=== PATIENT | female | born 1995 | race Caucasian/White ===

== ENCOUNTER 2017-02-23 21:44 | Emergency (ER) | payer MEDICAID ==
[~2017-02-23] VITALS: Ht 170.2 cm; Wt 63.8 kg
[~2017-02-23 21:44] MED LIST: CEPH250T PO; NO HOME MEDS; ONDA4TAB6 PO; POTA20TA19 PO
[2017-02-23] MEDS ORDERED: ALBU8.5H8 IH (22:24)
[2017-02-23] MEDS ORDERED: BENZ-38 PO (22:24)
[2017-02-23 22:50] VITALS: BP 134/87
[2017-02-23 23:00] LABS: CLARITY,URINE SLIGHTLY CLOUDY (Clear); COLOR,URINE YELLOW (Yellow); GLUCOSE, URINE NEGATIVE (Neg); KETONES,URINE NEGATIVE (Neg); LEUKOCYTE ESTERASE ,URINE TRACE (Neg); NITRITES, URINE NEGATIVE (Neg); OCCULT BLOOD,URINE NEGATIVE (Neg); PROTEIN,URINE NEGATIVE (Neg); UA COLLECTION TYPE CLN CATCH MIDSTREAM; UROBILINOGEN,URINE 0.2 E.U/dL (0.2-1.0)
[2017-02-23 23:12] LABS: BACTERIA,URINE 2+ /HPF (Neg); MUCUS STRANDS NONE SEEN /LPF (Neg); RBC,URINE NONE SEEN /HPF (0-2); SQUAMOUS EPITHELIAL CELL,UR MANY /LPF (FEW); WBC,URINE 0-4 /HPF (0-4)
== END 2017-02-23 22:51 | disposition home or self-care (01) ==
LOC: ER 21:45
DX: J40 Bronchitis, not specified as acute or chronic (principal); F17.210 Nicotine dependence, cigarettes, uncomplicated; F12.10 Cannabis abuse, uncomplicated; F15.10 Other stimulant abuse, uncomplicated; Z79.899 Other long term (current) drug therapy
CPT/HCPCS: 71046; 81001; 99285

== ENCOUNTER 2018-10-12 16:41 | Emergency (ER) | payer MEDICAID ==
[~2018-10-12] VITALS: Ht 170.2 cm; Wt 61.4 kg
[~2018-10-12 16:41] MED LIST changes: +ALBU8.5H8 IH; -CEPH250T PO
[2018-10-12 17:10] VITALS: BP 127/89
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
--- NOTE | 2018-10-12 18:49 | NUR ---
SO OFFICER HAS APPROVED A SART EXAM FOR THIS PT. HE IS ALSO ASKING FOR AND RECIEVED A MEDICAL RECORDS RELEAS.
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
== END 2018-10-12 19:00 | disposition left against medical advice (07) ==
LOC: EEVIPCON 16:41 → ER 16:42
DX: R20.0 Anesthesia of skin (principal); Z53.21 Procedure and treatment not carried out due to patient leaving prior to being seen by health care provider; Y04.8XXA Assault by other bodily force, initial encounter; Y93.89 Activity, other specified; Y92.89 Other specified places as the place of occurrence of the external cause; Y99.8 Other external cause status

== ENCOUNTER 2019-03-04 03:20 | Emergency (ER) | payer MEDICAID ==
[~2019-03-04] VITALS: Ht 170.2 cm; Wt 63.6 kg
[2019-03-04 04:01] LABS: CLARITY,URINE CLOUDY (Clear); COLOR,URINE YELLOW (Yellow); GLUCOSE, URINE NEGATIVE (Neg); KETONES,URINE NEGATIVE (Neg); LEUKOCYTE ESTERASE ,URINE LARGE (Neg); NITRITES, URINE POSITIVE (Neg); OCCULT BLOOD,URINE TRACE-INTACT (Neg); PROTEIN,URINE TRACE mg/dl (Neg); UROBILINOGEN,URINE 0.2 E.U/dL (0.2-1.0)
[2019-03-04 04:03] LABS: UA COLLECTION TYPE CLN CATCH MIDSTREAM
[2019-03-04 04:04] LABS: URINE HCG POSITIVE (NEG)
[2019-03-04 04:09] LABS: BACTERIA,URINE 4+ /HPF (Neg); RBC,URINE 0-2 /HPF (0-2); SQUAMOUS EPITHELIAL CELL,UR MODERATE /LPF (FEW); WBC,URINE TNTC /HPF (0-4)
[2019-03-04 04:10] LABS: MUCUS STRANDS FEW /LPF (Neg); WBC CLUMPS,URINE FEW /HPF (NEGATIVE)
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
[2019-03-04] MEDS ORDERED: NITR100C6 PO (04:24)
[2019-03-04] MEDS ORDERED: PREN1TAB79 PO (04:24)
[2019-03-04] MEDS ORDERED: nitrofuran/nitrofuran macrocrysal 100 MG capsule PO ONE (04:25)
[2019-03-04 04:26] VITALS: BP 124/85
--- NOTE | 2019-03-04 04:37 | NUR ---
PT SEEN FOR AND UTI ABX PRESCRIBED AND REVIEWED, NOTIFIED PT THAT FIRST OF ABX WILL BE GIVEN PRIOR TO HER DEPARTURE. PT DECLINED WANTING TO TAKE MEDICATION UNTIL SHE SEEN HER PRIMARY MD. EDUCATED PT THAT THE ABX WAS SAFE FOR , BUT PT STILL HESITANT TO TAKE . STATES SHE WILL FILL THE PRESCRIPTION AND TAKE MEDICATION ONCE SHE SEEKS A OB /TOE STAPLER OR GOES TO HER PRIMARY MD. INSTRUCTED PT THE IMPORTANCE OF TREATING UTI NO QUESTIONS ASKED PT AMBULATED OFF UNIT WITH [facility] AWAITING [facility]
== END 2019-03-04 04:37 | disposition home or self-care (01) ==
LOC: ER 03:21
DX: O23.40 Unspecified infection of urinary tract in pregnancy, unspecified trimester (principal); F12.90 Cannabis use, unspecified, uncomplicated; F15.90 Other stimulant use, unspecified, uncomplicated; Z79.899 Other long term (current) drug therapy; Z3A.00 Weeks of gestation of pregnancy not specified
CPT/HCPCS: 36415; 81001; 81025; 87077; 87088; 87186; 87491; 99283

== ENCOUNTER 2019-04-25 18:00 | Emergency (ER) | payer MEDICAID ==
[~2019-04-25] VITALS: Ht 170.2 cm; Wt 67.0 kg
[~2019-04-25 18:00] MED LIST changes: +NITR100C6 PO; +PREN1TAB79 PO
[2019-04-25 19:09] VITALS: BP 138/86
== END 2019-04-25 19:45 | disposition home or self-care (01) ==
LOC: ER 18:03
DX: O99.322 Drug use complicating pregnancy, second trimester (principal); F15.20 Other stimulant dependence, uncomplicated; F12.90 Cannabis use, unspecified, uncomplicated; F17.200 Nicotine dependence, unspecified, uncomplicated; Z79.899 Other long term (current) drug therapy; Z3A.14 14 weeks gestation of pregnancy
CPT/HCPCS: 99281

== ENCOUNTER 2019-12-07 14:25 | Emergency (ER) | payer MEDICAID ==
[~2019-12-07] VITALS: Ht 170.2 cm; Wt 54.5 kg
[2019-12-07] MEDS ORDERED: TETanus/Pertussis (Acell)/Diphther VAC/PF (Tdap-Adult) 0.5ml syringe IMVAC ONE (14:55)
--- NOTE | 2019-12-07 14:56 | NUR ---
Call placed to [facility] who will call me back with the name of the hotel that they are booking for her.
--- NOTE | 2019-12-07 15:20 | NUR ---
Contacted by [facility]. Pt has room reserved at [facility] for tonight. We will procur a cab to transport patient to [facility] when medically cleared for discharge.
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
[2019-12-07 16:36] VITALS: BP 113/81
== END 2019-12-07 16:37 | disposition home or self-care (01) ==
LOC: ER 14:26 → EEVIPCON 14:26 → ER 16:37
DX: M54.2 Cervicalgia (principal); J02.9 Acute pharyngitis, unspecified; M79.601 Pain in right arm; M79.602 Pain in left arm; F17.210 Nicotine dependence, cigarettes, uncomplicated; Z59.0 Homelessness; F12.10 Cannabis abuse, uncomplicated; F15.10 Other stimulant abuse, uncomplicated; Y04.8XXA Assault by other bodily force, initial encounter; Y93.89 Activity, other specified; Y92.89 Other specified places as the place of occurrence of the external cause; Y99.8 Other external cause status
CPT/HCPCS: 70360; 90471; 90715; 99283

== ENCOUNTER 2020-09-01 10:56 | Emergency (ER) | payer MEDICAID ==
[~2020-09-01] VITALS: Ht 170.2 cm; Wt 59.1 kg
[2020-09-01 11:01] VITALS: BP 113/73
== END 2020-09-01 11:19 ==
LOC: ER 10:57
DX: F19.10 Other psychoactive substance abuse, uncomplicated (principal); Z33.1 Pregnant state, incidental; F12.90 Cannabis use, unspecified, uncomplicated; F15.90 Other stimulant use, unspecified, uncomplicated; F17.210 Nicotine dependence, cigarettes, uncomplicated; Z59.0 Homelessness; Z88.6 Allergy status to analgesic agent; Z79.899 Other long term (current) drug therapy
CPT/HCPCS: 99283; 99406

== ENCOUNTER 2022-01-29 17:51 | Emergency (ER) | payer MEDICAID ==
[~2022-01-29] VITALS: Ht 170.2 cm; Wt 70.0 kg
[~2022-01-29 17:51] MED LIST changes: +ALBU8.5H17 IH; -ALBU8.5H8 IH; +POTA-207 PO; -POTA20TA19 PO
[2022-01-29 17:54] VITALS: BP 111/86
--- NOTE | 2022-01-29 18:10 | NUR ---
TC TO [facility] FOR [facility] SERVICES. ON-CALL COAL OR ORE CONTROLLER STATES THAT THE ADVOCATE IS AVAILABLE AND WILL BE COMING IN APPROXIMATELY 30 MINUTES.
--- NOTE | 2022-01-29 19:00 | NUR ---
martha of [facility] here to see patient.
== END 2022-01-29 20:17 | disposition left against medical advice (07) ==
LOC: EEVIPCON 17:51 → ER 17:51
DX: T76.21XA Adult sexual abuse, suspected, initial encounter (principal); Z53.21 Procedure and treatment not carried out due to patient leaving prior to being seen by health care provider; X58.XXXA Exposure to other specified factors, initial encounter; Y93.89 Activity, other specified; Y99.8 Other external cause status; Y92.89 Other specified places as the place of occurrence of the external cause

== ENCOUNTER 2022-01-29 21:00 | Emergency (ER) | payer MEDICAID ==
[~2022-01-29] VITALS: Ht 170.2 cm; Wt 70.5 kg
[2022-01-29 21:28] VITALS: BP 109/74
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
== END 2022-01-30 02:04 | disposition left against medical advice (07) ==
LOC: EEVIPCON 21:00 → ER 21:00
DX: Z00.8 Encounter for other general examination (principal); Z53.21 Procedure and treatment not carried out due to patient leaving prior to being seen by health care provider

== ENCOUNTER 2023-07-01 14:56 | Emergency (ER) | payer MEDICAID ==
[~2023-07-01] VITALS: Ht 170.2 cm; Wt 89.5 kg
[2023-07-01 15:20] VITALS: BP 124/75; PULSE 107; RESP 18; TEMP 97.8; O2SAT 99
[2023-07-01] MEDS ORDERED: CLIN300C54 PO (17:14)
[2023-07-01] MEDS: CefTRIAXone 1000mg IM Kit (w/lidocaine diluent) IM ONE (17:52)
[2023-07-01] MEDS: TETanus/Pertussis (Acell)/Diphther VAC/PF (Tdap-Adult) 0.5ml syringe IMVAC ONE (17:52)
== END 2023-07-01 18:24 | disposition home or self-care (01) ==
LOC: ER 14:57
DX: L02.415 Cutaneous abscess of right lower limb (principal); L03.115 Cellulitis of right lower limb; F12.90 Cannabis use, unspecified, uncomplicated; F15.90 Other stimulant use, unspecified, uncomplicated; Z59.00 Homelessness unspecified; Z88.8 Allergy status to other drugs, medicaments and biological substances
CPT/HCPCS: 90471; 90715; 96372; 99284; J0696; A6449